=== PATIENT | female | born 2000 | race Caucasian/White ===

== ENCOUNTER 2024-07-26 14:42 | Emergency (ER) | payer OTHER, SELFPAY ==
[2024-07-26 15:06] VITALS: BP 90/61; PULSE 85; RESP 16; TEMP 36; O2SAT 95; BMI 21.8
--- NOTE | 2024-07-26 16:43 | ED.GENADULT ---
HPI - General Adult General Chief complaint: Abdominal Pain Stated complaint: blood in stool Time Seen by Provider: 07/26/24 16:43 History of Present Illness HPI narrative: Arrives complaining of 1 week of blood in her stools as well as a few weeks of left lower abdomen pain. Denies N/V/D, alert and oriented, ABCs intact. 24-year-old young woman presenting to the emergency depart with concern of abdominal pain and blood in stool. Has had some intermittent pain in the left lower abdomen as well. 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 She describes some of her stools stained with dark to medium red blood; though not every stool. Most recently has been more frequent as well. Is not describing significant pain with bowel movements or burning. Has not had a fever. No known inflammatory bowel disorders with her or family although she wonders whether not she has developed what I would paraphrase as maybe some constipation predominant irritable bowel. Notes to eat a lot of vegetables. Was seen actually earlier today in clinic and an as described cursory anal area exam was done. Does not sound like this was done with an anoscope. Apparently this was unremarkable. She has never had known ovarian cyst. She would be about in the middle of her menstrual cycle. Evidently when called in today to schedule with Clinic was recommended to be evaluated in the emergency department. Related Data Home Medications ?Medication ?Instructions ?Recorded ?Confirmed No Known Home Medications 07/26/24 07/26/24 Allergies Allergy/AdvReac Type Severity Reaction Status Date / Time No Known Drug Allergies Allergy Verified 07/26/24 15:05 Review of Systems Status of ROS: Reports: 6 or more systems reviewed and unremarkable except as noted in History and below Exam Narrative: Exam Narrative: Pleasant. NAD. Skin is warm and dry. Heart in regular rate. Mucous membranes are not particularly pale. Neither is her skin. Abdomen is flat soft mild discomfort in the left low abdomen; not exactly adnexal area. She described a lump that she has felt there. On deeper palpation I think this is more the edge of the abdomen/inguinal crease? Does not feel consistent with a discrete ?lump?. Const: Vital Signs, click to edit/add: Vital Signs - 24 hr 07/26/24 15:06 Temperature 96.8 F L Pulse Rate [Pulse Oximeter] 85 Respiratory Rate 16 Blood Pressure [Ri ght Upper Arm] 90/61 Pulse Oximetry 95 Oxygen Delivery Me thod Room Air Documenting provider has reviewed patient's vital signs: yes Course Vital Signs Vital signs: Initial Vital Signs Temperature 96.8 F L 07/26/24 15:06 Temperature Source Temporal Artery Scan 07/26/24 15:06 Pulse Rate 85 07/26/24 15:06 Respiratory Rate 16 07/26/24 15:06 Blood Pressure 90/61 07/26/24 15:06 Blood Pressure Mean 70 07/26/24 15:06 Pulse Oximetry 95 07/26/24 15:06 Oxygen Delivery Method Room Air 07/26/24 15:06 Vital Signs Temperature 96.8 F L 07/26/24 15:06 Pulse Rate 85 07/26/24 15:06 Respiratory Rate 16 07/26/24 15:06 Blood Pressure 90/61 07/26/24 15:06 Pulse Oximetry 95 07/26/24 15:06 Oxygen Delivery Method Room Air 07/26/24 15:06 Temperature 96.8 F L 07/26/24 15:06 Pulse Rate 85 07/26/24 15:06 Respiratory Rate 16 07/26/24 15:06 Blood Pressure 90/61 07/26/24 15:06 Pulse Oximetry 95 07/26/24 15:06 Oxygen Delivery Method Room Air 07/26/24 15:06 Medical Decision Making MDM Narrative Medical decision making narrative: Abdominal exam I would say is overall reassuring. Bleeding would seem to be initiated secondary to constipation history. Which I would presume then is is resulting rectal passage bleeding. I am uncertain as to what the change in stool pattern represents but does not have any other evidence to suggest liver problems contributing. She does not have the type of exam I would associate with flaring diverticulitis. No family history noted of early cancers. Looking for further evidence to did deeper I did suggest a CBC. This could at least offer some reassurance as to the hemoglobin and a normal white count might suggest more functional/passage bleeding. Does not have urinary tract symptoms. Ovarian cyst would not be contributing hematochezia but could be concurrent. Discomfort though seems less adnexal. I also offered anoscopy exam here but understandably ultimately this was deferred. Has already been suggested from prior visit that be seen in primary care to schedule colonoscopy. Cbc is unremarkable/reassuring. I do not think any further workup is necessary during this emergency department visit. No further events during time in the emergency department. See patient discharge plan for further discussion Stay hydrated. Continue to your vegetables :) Consider adding MiraLax equivalent to diet daily. I would follow up in clinic to discuss next steps in evaluation. First focus on your finals. Return/be seen for marked increase in persistent pain or increasing blood in stool, associated fever. Lab Data Lab results reviewed: Yes I reviewed the patient's lab results Labs: Lab Results 07/26/24 Range/Units 17:25 WBC 10.96 (4.50-11.00) K/uL RBC 6.02 H (4.00-5.20) m/uL Hgb 12.6 (12.0-16.0) gm/dL Hct 40.7 (33.0-51.0) % MCV 68 L (80-100) fL MCH 21 L (26-34) pg MCHC 31 L (32-36) gm/dL RDW Coeff of Betty 14.4 (11.5-15.5) % Plt Count 307 (140-440) K/uL Neut % (Auto) 63.6 (42.0-72.0) % Lymph % (Auto) 27.1 (20-44) % Frederick % (Auto) 6.8 (0.0-11.0) % Eos % (Auto) 1.7 (0.0-7.0) % Baso % (Auto) 0.6 (0.0-3.0) % Neut # (Auto) 6.97 (1.7-7.0) K/uL Lymph # (Auto) 2.97 H (0.90-2.90) K/uL Frederick # (Auto) 0.70 (0.00-0.90) K/UL Eos # (Auto) 0.19 (0.00-0.50) K/uL Baso # (Auto) 0.07 (0.00-0.30) K/uL Abs Immat Gran (auto) 0.02 (0.00-0.30) K/uL Imm/Tot Granulo (auto) 0.2 % Discharge Plan Discharge Clinical Impression: Blood in stool, Constipation, Left lower quadrant abdominal pain Patient Disposition: Home w/ Parent or Adult Condition: Stable Additional Instructions: Stay hydrated. Continue to your vegetables :) Consider adding MiraLax equivalent to diet daily. I would follow up in clinic to discuss next steps in evaluation. First focus on your finals. Return/be seen for marked increase in persistent pain or increasing blood in stool, associated fever. Prescriptions: No Action No Known Home Medications Follow Up/Referrals: Provider,Not a Local [Primary Care Provider, Family Practice] Stand Alone Forms: [email or web address] Info Instructions
[2024-07-26 17:36] LABS: Basophils Absolute Auto 0.07 K/uL (0.00-0.30); Basophils Percent Auto 0.6 % (0.0-3.0); Eosinophils Absolute Auto 0.19 K/uL (0.00-0.50); Eosinophils Percent Auto 1.7 % (0.0-7.0); Hematocrit 40.7 % (33.0-51.0); Hemoglobin* 12.6 gm/dL (12.0-16.0); Immature Granulocytes Abs Auto 0.02 K/uL (0.00-0.30); Immature Granulocytes Pct Auto 0.2 %; Lymphocytes Absolute Auto 2.97 K/uL (0.90-2.90); Lymphocytes Percent Auto 27.1 % (20-44); Mean Corpuscular HGB Conc 31 gm/dL (32-36); Mean Corpuscular Hemoglobin 21 pg (26-34); Mean Corpuscular Volume 68 fL (80-100); Monocytes Percent Auto 6.8 % (0.0-11.0); Neutrophils Absolute Auto 6.97 K/uL (1.7-7.0); Neutrophils Percent Auto 63.6 % (42.0-72.0); Platelet Count* 307 K/uL (140-440); RDW Coefficient of Variation % 14.4 % (11.5-15.5); Red Blood Count 6.02 m/uL (4.00-5.20); White Blood Count* 10.96 K/uL (4.50-11.00)
[2024-07-26 17:37] LABS: Slide Review Reflex No
== END 2024-07-26 18:27 | disposition home or self-care (01) ==
PROVIDERS: Emergency Provider Family Medicine
DX: R10.32 Left lower quadrant pain (principal); K59.00 Constipation, unspecified; K92.1 Melena
CPT/HCPCS: 36415; 85025; 99283; 99284